=== PATIENT | female | born 1965 | race Caucasian/White ===

== ENCOUNTER → 2018-06-22 06:35 | Outpatient (CLI) | payer OTHER, SELFPAY ==
--- NOTE | 2018-06-22 06:48 | MRI_ITS ---
STUDY: MRI LEFT MIDFOOT REASON FOR EXAM: Left lateral foot pain since December with fifth metatarsal fracture. TECHNIQUE: Standardized fat and water weighted pulse sequences were obtained in all 3 orthogonal planes. COMPARISON: None. FINDINGS: Normal tibiotalar and posterior subtalar articulations. Normal talonavicular articulation. Normal calcaneocuboid articulation. Normal navicular-cuneiform articulations. Normal intercuneiform articulations. Normal first tarsometatarsal articulation. Normal Lisfranc ligament. Normal second and third tarsometatarsal articulations. Normal cuboid fourth and cuboid fifth tarsometatarsal articulation. There appears to be a small non retracted avulsion fracture of the fifth metatarsal base (T2 axial image 7) and with mild bone edema (inversion recovery sagittal image 19). Normal tibialis anterior tendon. Normal extensor hallucis longus tendon. Normal extensor digitorum longus tendons. Normal peroneus longus tendon and distal insertion. Normal peroneus brevis tendon and distal insertion. There is atrophy with partial fat replacement of the abductor digiti minimi muscle (T1 sagittal image 14). There is plantar fasciitis (inversion recovery sagittal images 8, 9). There is a plantar calcaneal enthesophyte. There is mild postoperative micrometallic artifact in the lateral subcutis adipose space. MRI/Lower Ext/No Jt/w/o IMPRESSION: Small avulsion fracture of the fifth metatarsal base with mild bone edema. Plantar fasciitis. Atrophy of the abductor digiti minimi muscle. Electronically Signed: Abraham López MD at 9:50 EDT Tel , Service support ,
== END ==
PROVIDERS: Family Provider Family Medicine; PCP Family Medicine; Referring Provider Podiatrist; Visit Provider Podiatrist
DX: S92.355D Nondisplaced fracture of fifth metatarsal bone, left foot, subsequent encounter for fracture with routine healing (principal); X58.XXXD Exposure to other specified factors, subsequent encounter; M79.672 Pain in left foot; M72.2 Plantar fascial fibromatosis; M77.32 Calcaneal spur, left foot
CPT/HCPCS: 73718

== ENCOUNTER 2018-09-29 14:13 | Observation (INO) | payer OTHER, SELFPAY ==
[2018-09-29] VITALS (17 sets, daily range): BP systolic 119–183; BP diastolic 70–102; PULSE 77–97; RESP 12–21; TEMP 36.6–36.7; O2SAT 97–100; BMI 40.3; BMI 46.4
--- NOTE | 2018-09-29 14:21 | EKG12_ITS ---
Test Reason : CP Blood Pressure : / mmHG Vent. Rate : 078 BPM Atrial Rate : 078 BPM P-R Int : 154 ms QRS Dur : 086 ms QT Int : 402 ms P-R-T Axes : 042 -15 002 degrees QTc Int : 458 ms Sinus rhythm with occasional Premature ventricular complexes Moderate voltage criteria for LVH, may be normal variant Borderline ECG When compared with ECG of 29-SEP-2018 17:14, MANUAL COMPARISON REQUIRED, DATA IS UNCONFIRMED Confirmed by UNIQUE CAVANAUGH, AUBREE ([id number]), editor magazine ZEENTA AYALA ([id number]) on 10/05/2018 10:24:29 AM Referred By: ALEXANDRE Confirmed By:AUBREE CALHOUN MD
--- NOTE | 2018-09-29 14:21 | RAD_ITS ---
STUDY: X-RAY CHEST REASON FOR EXAM: Female, 52 years old. Chest pain. TECHNIQUE: Single AP portable view of the chest. COMPARISON: None. FINDINGS: The lungs are clear and expanded. There is no demonstrated pleural abnormality. Normal size heart. Normal mediastinum and jena. Normal visualized pulmonary arteries. Normal visualized aortic arch and descending thoracic aorta. Normal visualized thoracic spine. Normal visualized ribs, clavicles, and shoulders. There is no demonstrated abnormality of the visualized soft tissue structures of the upper abdomen. RAD/Chest 1 View (Portable) IMPRESSION: Normal x-ray examination of the chest. Electronically Signed: Rick Owusu MD at 14:47 EST Tel [phone], Service support ,
[2018-09-29 14:34] LABS: Absolute Lymphocyte Count 2.97 X10^3/ul (0.83-4.51); Absolute Neutrophil Count 2.6 X10^3/uL (2.0-7.7); Basophil# 0.01 X10^3/uL; Basophil% 0.2 % (0-1); Eosinophil# 0.21 X10^3/uL; Eosinophils% 3.4 % (0-5); Hematocrit 42.4 % (37-47); Hemoglobin 14.1 g/dl (12.0-15.0); Lymphocyte # 2.97 X10^3/ul (4.0); Lymphocyte % 48.6 % (19-41); Mean Corp Hgb Conc 33.3 g/gl (32-36); Mean Corpuscular Hgb 29.7 pg (27.0-32.0); Mean Corpuscular Volume 89.5 fL (81-99); Mean Platelet Vol. 8.6 fl (6.2-12.0); Monocyte# 0.31 X10^3/uL; Monocyte% 5.1 % (0-10); Neutrophil % 42.5 % (47-70); POSITIVE COUNT NO; POSITIVE DIFFERENTIAL NO; POSITIVE MORPHOLOGY NO; Platelet Count 247 K/mm3 (150-450); RBC Distribution Width CV 12.6 % (11.6-14.6); RBC Distribution Width SD 40.6 fl (35.1-43.9); Red Blood Count 4.74 M/mm3 (4.2-5.4); White Blood Count 6.1 K/mm3 (4.4-11.0)
[2018-09-29 14:50] LABS: Anion Gap 7 (5-15); BUN 12 mg/dL (7-18); Calcium,Total 8.7 mg/dL (8.5-10.1); Chloride 108 mmol/L (98-107); EST Glomerular Filtration Rate 93 mL/min (>60); Est Glom Filt Rate - Afr Amer 112 mL/min (>60); Glucose 110 mg/dL (74-106); Potassium 3.5 mmol/L (3.5-5.1); Sodium Level 142 mmol/L (136-145)
--- NOTE | 2018-09-29 16:07 | ED.DCSUM_ITS ---
- ER Visit Summary Date of Service: 09/29/18 Chief Complaint: Chest pain History of Present Illness: The patient is a 52 F with chest pain that started about 7 hours ago she has intermittent episodes the last about 20 minutes. There is sharp achy with some radiation into the back but they are non-pleuritic . The pain is not tearing. She has a strong family history of cardiac events. Physical Examination: Not appear in acute distress. Moist mucous membranes, no obvious facial deformity No C-spine tenderness supple neck. Regular rate and rhythm without any obvious murmurs Clear lungs bilaterally speaking in full sentences without any obvious respiratory distress Abdomen soft and nontender no guarding or rebound Moves all extremities without any difficulty or pain. Skin does not show any obvious rashes or lesions, no trauma. Alert oriented ?3 with no gross focal deficit Emergency Department Course and Treatment: Patient has a negative troponin, she has nonspecific T wave flattening laterally, she has strong family history, a concerning history of present illness for cardiac events as well as a heart score of 4. I will call the hospitalist for admission for cardiac workup. I am not concerned about a PE or dissection. Disposition: Admit to the hospital in stable condition Impression: Chest pain This note was generated with [employer] dictation software. It may contain incorrect words, spelling, and punctuation that were not noted in review of the chart prior to signing ED Disposition - Plan for ED Patient: Chief Complaint: Chest Pain Referrals: Elizabeth Gibson MD [Primary Care Provider] -
--- NOTE | 2018-09-29 16:48 | PCM.HP.STD ---
Problem List (1) Chest pain Status: Acute Qualifiers: Chest pain type: unspecified Qualified Code(s): R07.9 - Chest pain, unspecified History of Present Illness Date of Admission: 09/29/18 Chief Complaint: chest pain The patient is a 52 year old F presents with chest pain. Began at 7AM, midsternal, radiated to back and down right arm. Resolved only to recur around noon. Never had prior.[] Past Medical History Allergies acetaminophen [From Darvocet-N] Allergy (Verified 09/29/18 14:27) Other benzoin Allergy (Verified 09/29/18 14:27) Rash naproxen [From Aleve] Allergy (Verified 09/29/18 14:27) Rash propoxyphene [From Darvocet-N] Allergy (Verified 09/29/18 14:27) Other tramadol [From Ultram] Allergy (Verified 09/29/18 14:27) Rash Home Medications: Ambulatory Orders Medication Instructions Recorded Aspirin E.C. [Ecotrin] 324 mg PO PRN PRN 09/29/18 Ibuprofen 400 mg PO PRN PRN 09/29/18 Ibuprofen/Famotidine [Duexis 1 tab PO Q6H PRN PRN 09/29/18 800-26.6 mg Tablet] Sumatriptan Succ/Naproxen Sod 1 tab PO DAILY PRN PRN 09/29/18 [Treximet 10-60 mg Tablet] Smoking Status: Never smoker Tobacco Use: Non-smoker Alcohol: None Drugs: None - *Family History Sibling History Items: Heart Disease Review of Systems Constitutional: Denies: Anorexia, Chills, Fever Eyes: Denies: Blurred vision, Double vision HEENT: Denies: Head Aches, Sinus Congestion, Sinus Drainage Cardiovascular: Reports: Chest Pain. Denies: Edema Respiratory: Reports: Shortness of Breath. Denies: Cough Gastrointestinal: Reports: Nausea. Denies: Abdominal Pain, Vomiting Genitourinary: Denies: Dysuria, Frequency Musculoskeletal: Denies: Joint Pain, Joint Tenderness Skin: Denies: Rash, Wounds Neurological: Denies: Numbness, Tingling, Focal weakness Psychiatric: Denies: Anxiety, Depression Hematologic/ Lymphatic: Denies: Easy Bruising, Easy Bleeding, Hx of blood clot Comment: A 10 point review of systems were negative except as mentioned in the history of present illness and the other review of systems. VTE Information - Inpt Only VTE Present on Admission: No VTE Mechan Device Prophylaxis: None VTE Pharm Prophylaxis ordered?: Yes Patient Problems: Active and Suspected Problems Chest pain (Acute) - Physical Exam General: Alert, Cooperative, No apparent distress HEENT: Atraumatic, Normocephalic Oral: Moist Mucosa, No Gingival or Mucosal Lesions/ Ulcerations Neck: No Nodes, Thyroid Normal Size and Texture Lungs: Clear to auscultation, Normal air movement, No rhonchi, No wheeze Cardiovascular: Regular rate, Regular Rhythm, Normal S1, Normal S2, No murmurs Abdomen: Bowel Sounds Present, Soft, Non Tender, Non-Distended, No Hepato-splenomegaly Extremities: No edema, No Calf Tenderness Skin: No rashes, No breakdown Musculoskeletal: No Tenderness to Palpation of Joints or Extremities, No Muscle Wasting Psych/Mental Status: Normal Affect, Appropriate Vital Signs Temp Pulse Resp BP Pulse Ox 36.7 C 92 21 H 170/102 H 99 09/29/18 14:13 09/29/18 16:20 09/29/18 16:20 09/29/18 16:20 09/29/18 16:20 Oxygen Delivery Method Room Air Weight: 106.594 kg Body Mass Index (BMI) 40.3 Laboratory Tests Past 24 Hrs 09/29/18 09/29/18 14:25 14:25 WBC 6.1 RBC 4.74 Hgb 14.1 Hct 42.4 MCV 89.5 MCH 29.7 MCHC 33.3 RDW 12.6 RDW Differential 40.6 Plt Count 247 MPV 8.6 Immature Gran % (Auto) 0.200 Neut % (Auto) 42.5 L Lymph % (Auto) 48.6 H [place] % (Auto) 5.1 Eos % (Auto) 3.4 Baso % (Auto) 0.2 Absolute Neuts (auto) 2.6 Absolute Lymphs (auto) 2.97 Total Counted Not Reportable Sodium 142 Potassium 3.5 Chloride 108 H Carbon Dioxide 27.0 Anion Gap 7 BUN 12 Creatinine 0.70 Estim Creat Clear Calc 82.10 Est GFR (MDRD) Af Amer 112 Est GFR (MDRD) Non-Af 93 BUN/Creatinine Ratio 17.0 Glucose 110 H Calcium 8.7 Troponin I < 0.015 Clinical Impression(s) from Imaging Studies Chest X-Ray 09/29/18 14:21 IMPRESSION: Normal x-ray examination of the chest. Electronically Signed: Rick Owusu MD at 14:47 EST Tel [phone], Service support , EKG reviewed and showed normal sinus rhythm with PVCs. Otherwise no acute changes. Assessment/Plan All Active Problems Chest pain (Acute) 1. Chest pain BURKE score of 2 Patient already on aspirin as outpatient Family history for coronary artery disease Patient recently broke her ankle so would not be able to engage in a treadmill stress test the patient will undergo a chemical nuclear stress test Cycle troponins 2. DVT prophylaxis with LMWH Code Visit OBSV E&M: [id number] Initial observation care L2
--- NOTE | 2018-09-29 16:53 | HP.PCM_ITS ---
Problem List (1) Chest pain Status: Acute Qualifiers: Chest pain type: unspecified Qualified Code(s): R07.9 - Chest pain, unspecified History of Present Illness Date of Admission: 09/29/18 Chief Complaint: chest pain The patient is a 52 year old F presents with chest pain. Began at 7AM, midsternal, radiated to back and down right arm. Resolved only to recur around noon. Never had prior.[] Past Medical History Allergies acetaminophen [From Darvocet-N] Allergy (Verified 09/29/18 14:27) Other benzoin Allergy (Verified 09/29/18 14:27) Rash naproxen [From Aleve] Allergy (Verified 09/29/18 14:27) Rash propoxyphene [From Darvocet-N] Allergy (Verified 09/29/18 14:27) Other tramadol [From Ultram] Allergy (Verified 09/29/18 14:27) Rash Home Medications: Ambulatory Orders Medication Instructions Recorded Aspirin E.C. [Ecotrin] 324 mg PO PRN PRN 09/29/18 Ibuprofen 400 mg PO PRN PRN 09/29/18 Ibuprofen/Famotidine [Duexis 1 tab PO Q6H PRN PRN 09/29/18 800-26.6 mg Tablet] Sumatriptan Succ/Naproxen Sod 1 tab PO DAILY PRN PRN 09/29/18 [Treximet 10-60 mg Tablet] Smoking Status: Never smoker Tobacco Use: Non-smoker Alcohol: None Drugs: None - *Family History Sibling History Items: Heart Disease Review of Systems Constitutional: Denies: Anorexia, Chills, Fever Eyes: Denies: Blurred vision, Double vision HEENT: Denies: Head Aches, Sinus Congestion, Sinus Drainage Cardiovascular: Reports: Chest Pain. Denies: Edema Respiratory: Reports: Shortness of Breath. Denies: Cough Gastrointestinal: Reports: Nausea. Denies: Abdominal Pain, Vomiting Genitourinary: Denies: Dysuria, Frequency Musculoskeletal: Denies: Joint Pain, Joint Tenderness Skin: Denies: Rash, Wounds Neurological: Denies: Numbness, Tingling, Focal weakness Psychiatric: Denies: Anxiety, Depression Hematologic/ Lymphatic: Denies: Easy Bruising, Easy Bleeding, Hx of blood clot Comment: A 10 point review of systems were negative except as mentioned in the history of present illness and the other review of systems. VTE Information - Inpt Only VTE Present on Admission: No VTE Mechan Device Prophylaxis: None VTE Pharm Prophylaxis ordered?: Yes Patient Problems: Active and Suspected Problems Chest pain (Acute) - Physical Exam General: Alert, Cooperative, No apparent distress HEENT: Atraumatic, Normocephalic Oral: Moist Mucosa, No Gingival or Mucosal Lesions/ Ulcerations Neck: No Nodes, Thyroid Normal Size and Texture Lungs: Clear to auscultation, Normal air movement, No rhonchi, No wheeze Cardiovascular: Regular rate, Regular Rhythm, Normal S1, Normal S2, No murmurs Abdomen: Bowel Sounds Present, Soft, Non Tender, Non-Distended, No Hepato- splenomegaly Extremities: No edema, No Calf Tenderness Skin: No rashes, No breakdown Musculoskeletal: No Tenderness to Palpation of Joints or Extremities, No Muscle Wasting Psych/Mental Status: Normal Affect, Appropriate Vital Signs Temp Pulse Resp BP Pulse Ox 36.7 C 92 21 H 170/102 H 99 09/29/18 14:13 09/29/18 16:20 09/29/18 16:20 09/29/18 16:20 09/29/18 16:20 Oxygen Delivery Method Room Air Weight: 106.594 kg Body Mass Index (BMI) 40.3 Laboratory Tests Past 24 Hrs 09/29/18 09/29/18 14:25 14:25 WBC 6.1 RBC 4.74 Hgb 14.1 Hct 42.4 MCV 89.5 MCH 29.7 MCHC 33.3 RDW 12.6 RDW Differential 40.6 Plt Count 247 MPV 8.6 Immature Gran % (Auto) 0.200 Neut % (Auto) 42.5 L Lymph % (Auto) 48.6 H [place] % (Auto) 5.1 Eos % (Auto) 3.4 Baso % (Auto) 0.2 Absolute Neuts (auto) 2.6 Absolute Lymphs (auto) 2.97 Total Counted Not Reportable Sodium 142 Potassium 3.5 Chloride 108 H Carbon Dioxide 27.0 Anion Gap 7 BUN 12 Creatinine 0.70 Estim Creat Clear Calc 82.10 Est GFR (MDRD) Af Amer 112 Est GFR (MDRD) Non-Af 93 BUN/Creatinine Ratio 17.0 Glucose 110 H Calcium 8.7 Troponin I < 0.015 Clinical Impression(s) from Imaging Studies Chest X-Ray 09/29/18 14:21 IMPRESSION: Normal x-ray examination of the chest. Electronically Signed: Rick Owusu MD at 14:47 EST Tel [phone], Service support , EKG reviewed and showed normal sinus rhythm with PVCs. Otherwise no acute changes. Assessment/Plan All Active Problems Chest pain (Acute) 1. Chest pain BURKE score of 2 Patient already on aspirin as outpatient Family history for coronary artery disease Patient recently broke her ankle so would not be able to engage in a treadmill stress test the patient will undergo a chemical nuclear stress test Cycle troponins 2. DVT prophylaxis with LMWH Code Visit OBSV E&M: 52322 Initial observation care L2
--- NOTE | 2018-09-29 17:00 | EKG12_ITS ---
Test Reason : CP Blood Pressure : / mmHG Vent. Rate : 096 BPM Atrial Rate : 096 BPM P-R Int : 158 ms QRS Dur : 090 ms QT Int : 374 ms P-R-T Axes : 046 -19 018 degrees QTc Int : 472 ms Sinus rhythm with sinus arrhythmia with frequent Premature ventricular complexes Moderate voltage criteria for LVH, may be normal variant Borderline ECG Confirmed by UNIQUE CAVANAUGH, AUBREE ([id number]), design editor ZEENAT AYALA ([id number]) on 10/05/2018 9:45:02 AM Referred By: YULISA Confirmed By:AUBREE CALHOUN MD
--- NOTE | 2018-09-29 21:36 | EKG12_ITS ---
Test Reason : CP ADMISSION Blood Pressure : / mmHG Vent. Rate : 077 BPM Atrial Rate : 070 BPM P-R Int : 162 ms QRS Dur : 090 ms QT Int : 390 ms P-R-T Axes : 049 -14 004 degrees QTc Int : 441 ms Sinus rhythm with sinus arrhythmia with occasional Premature ventricular complexes Moderate voltage criteria for LVH, may be normal variant Nonspecific T wave abnormality Abnormal ECG Confirmed by UNIQUE CAVANAUGH, AUBREE ([id number]), commissioning editor ZEENAT AYALA ([id number]) on 10/05/2018 10:27:07 AM Referred By: ALEXANDRE Confirmed By:AUBREE CALHOUN MD
[2018-09-30] VITALS (8 sets, daily range): BP systolic 119–161; BP diastolic 73–98; PULSE 77–93; RESP 18; TEMP 36.2–36.8; O2SAT 96–99
[2018-09-30] MEDS: Morphine 2 MG/ML Syringe 1 MG IV (02:26)
[2018-09-30] MEDS: 0.9% NaCl Peripheral Flush Adult/Peds IV (02:28)
[2018-09-30 05:38] LABS: Absolute Lymphocyte Count 2.32 X10^3/ul (0.83-4.51); Absolute Neutrophil Count 2.3 X10^3/uL (2.0-7.7); Basophil# 0.02 X10^3/uL; Basophil% 0.4 % (0-1); Eosinophil# 0.21 X10^3/uL; Eosinophils% 4.1 % (0-5); Hematocrit 41.2 % (37-47); Hemoglobin 13.6 g/dl (12.0-15.0); Lymphocyte # 2.32 X10^3/ul (4.0); Mean Corpuscular Hgb 29.4 pg (27.0-32.0); Mean Corpuscular Volume 89.2 fL (81-99); Monocyte# 0.34 X10^3/uL; Monocyte% 6.6 % (0-10); Neutrophil # 2.25 X10^3/uL (2.7-7.7); Neutrophil % 43.7 % (47-70); Platelet Count 233 K/mm3 (150-450); RBC Distribution Width CV 12.8 % (11.6-14.6); RBC Distribution Width SD 41.2 fl (35.1-43.9); Red Blood Count 4.62 M/mm3 (4.2-5.4); White Blood Count 5.2 K/mm3 (4.4-11.0)
[2018-09-30 05:41] LABS: POSITIVE COUNT NO; POSITIVE DIFFERENTIAL NO; POSITIVE MORPHOLOGY NO
[2018-09-30 05:50] LABS: International Normalized Ratio 1.1; Prothrombin Time (Protime)PT. 14.1 SECONDS (11.7-14.9)
[2018-09-30 05:51] LABS: Partial Thromboplast Time 32.6 Seconds (24.1-36.2)
[2018-09-30] MEDS: Aspirin 81 MG TAB.CHEW PO (05:55)
--- NOTE | 2018-09-30 05:55 | EKG12_ITS ---
Test Reason : CP Blood Pressure : / mmHG Vent. Rate : 080 BPM Atrial Rate : 080 BPM P-R Int : 154 ms QRS Dur : 088 ms QT Int : 412 ms P-R-T Axes : 056 -11 013 degrees QTc Int : 475 ms Normal sinus rhythm Normal ECG When compared with ECG of 29-SEP-2018 21:41, MANUAL COMPARISON REQUIRED, DATA IS UNCONFIRMED Confirmed by UNIQUE CAVANAUGH, AUBREE ([id number]), staff editor ZEENAT AYALA ([id number]) on 10/05/2018 10:25:04 AM Referred By: ALEXANDRE Confirmed By:AUBREE CALHOUN MD
[2018-09-30 06:31] LABS: Anion Gap 6 (5-15); BUN 9 mg/dL (7-18); BUN/Creat Ratio 15.3 RATIO (10-20); Calcium,Total 8.2 mg/dL (8.5-10.1); Chloride 111 mmol/L (98-107); Cholesterol 160 mg/dL (200); Creatinine, Serum 0.59 mg/dL (0.55-1.02); EST Glomerular Filtration Rate 115 mL/min (>60); Est Glom Filt Rate - Afr Amer 139 mL/min (>60); Estimated Creatinine Clearance 81.03 ml/min; Glucose 85 mg/dL (74-106); High Density Lipoprotein 54 mg/dL; Potassium 3.5 mmol/L (3.5-5.1); Sodium Level 142 mmol/L (136-145); Triglycerides 84 mg/dL; Very Low Density Lipoprotein 17 mg/dL (5-40)
--- NOTE | 2018-09-30 12:01 | DCINST_ITS ---
- Discharge Diagnoses Current Active Problems: Current Active and Chronic Problems 1. Noncardiac chest pain 2. Hypertension without previous diagnosis You will use the following diet at home:: No restrictions Discharge Activity: Return to Normal Activity Call your doctor if you observe: Shortness of breath, Dizziness, Fainting spells, Chest pain Allergies/Adverse Reactions: Allergies acetaminophen [From Darvocet-N] Allergy (Verified 09/29/18 14:27) Other benzoin Allergy (Verified 09/29/18 17:17) Shortness of breath eats away at my skin if it comes in contact naproxen [From Aleve] Allergy (Verified 09/29/18 17:17) Swelling propoxyphene [From Darvocet-N] Allergy (Verified 09/29/18 17:17) Other hallucination tramadol [From Ultram] Allergy (Verified 09/29/18 17:17) Hives Medications to take at Discharge Ibuprofen 400 mg PO PRN PRN 09/29/18 Ibuprofen/Famotidine [Duexis 800-26.6 mg Tablet] 1 tab PO Q6H PRN PRN 09/29/18 Sumatriptan Succ/Naproxen Sod [Treximet 10-60 mg Tablet] 1 tab PO DAILY PRN PRN 09/29/18 Aspirin [Aspirin, Baby] 81 mg PO DAILY@0800 #30 tab.chew 09/30/18 Lisinopril [Zestril] 5 mg PO DAILY #30 tablet 09/30/18 The following prescriptions were given: Aspirin [Aspirin, Baby] 81 mg PO DAILY@0800 #30 tab.chew Lisinopril [Zestril] 5 mg PO DAILY #30 tablet Primary Care Physician: Elizabeth Gibson MD [Primary Care Provider] - Please follow up with your Primary Care Physician in: 1 Week Test Results: Test results from this visit will be discussed in further detail at your follow- up appointment, if applicable. Proposed Discharge Date: 09/30/18
--- NOTE | 2018-09-30 13:46 | STRESSREP_ITS ---
Stress Test Report Pharmacologic myocardial perfusion stress test. 52-year-old lady with a history of atypical chest pain. Medications: Aspirin Lovenox. Next Stress protocol: Resting EKG demonstrates normal sinus rhythm with a rate of 83 bpm premature ventricular complex noted. Resting blood pressure 150/102 mmHg. 0.4 mg of regadenoson was infused per usual protocol followed by rapid intravenous saline flush injection continuous EKG monitoring was performed the patient maintained sinus rhythm with frequent premature ventricular complexes noted. The maximum heart rate attained was 114 bpm which was 67% of maximum predicted heart rate the maximum workload was 1 metabolic equivalent. At rest there were no ST or T wave changes noted suggest abnormal flow reserve at peak infusion no ST or T wave changes were noted suggest abnormal flow reserve. No clinical angina was noted. The resting blood pressure 150/102 with a final blood pressure 138/92 mmHg. Myocardial perfusion protocol. 14.4 mCi of technetium 99m sestamibi was injected at rest. 0.4 mg of regadenoson was infused per usual protocol peak infusion 44.9 mCi of technetium 99m sestamibi was injected stress images were obtained stress and rest images were reconstructed and compared in the short axis vertical long horizontal long axis. Gated images were also obtained Perfusion SPECT analysis: Review of the stress images demonstrate normal uptake of tracer noted in all areas of myocardium. The resting images similarly demonstrate normal uptake of tracer noted in all areas of myocardium. No areas of reversibility are noted suggest ischemia no previous infarct is noted. Gated SPECT analysis: The gated ejection fraction is noted to be 45%. The above is suggestive of a mi ld cardiomyopathy. Conclusion: Normal pharmacologic myocardial perfusion stress test. Mildly reduced left ventricular systolic function.
--- NOTE | 2018-09-30 14:00 | PCM.DC.SUM ---
<Marilee Das - Last Filed: 09/30/18 14:03> Discharge Date and Diagnosis Date of Admission: 09/29/18 Date of Discharge: 09/30/18 - Primary Discharge Diagnosis Active and Suspected Problems 1. Noncardiac chest pain, ACS rule out 2. Hypertension without previous diagnosis Hospital Course and Treatment Imaging Results: Diagnostic Data Chest X-Ray 09/29/18 14:21 IMPRESSION: Normal x-ray examination of the chest. Electronically Signed: Rick Owusu MD at 14:47 EST Tel [phone], Service support , Operations: None Procedures: Stress test Summary of Care Provided: The patient is a 52 year old F admitted 09/29/2018 due to chest pain. Troponin negative. EKG without ST-T changes. Patient underwent nuclear stress test which was negative for ischemia. Patient will continue daily baby aspirin which she was on prior to admission. She reports a family history of coronary artery disease. ACS ruled out. Patient's blood pressure labile during admission. New diagnosis hypertension. Discharged on lisinopril 5 mg daily with further monitoring as outpatient and adjustment as found appropriate. Lipid panel within normal limits. Follow-up with primary care physician in 1 week. General: Alert, Cooperative, No apparent distress HEENT: Atraumatic, Normocephalic Oral: Moist Mucosa, No Gingival or Mucosal Lesions/ Ulcerations Neck: No Nodes, Thyroid Normal Size and Texture Lungs: Clear to auscultation, Normal air movement Cardiovascular: Regular rate, Regular Rhythm, Normal S1, Normal S2, No murmurs Abdomen: Bowel Sounds Present, Soft, Non Tender, Non-Distended Extremities: No edema, No Calf Tenderness Skin: No rashes, No breakdown Musculoskeletal: No Tenderness to Palpation of Joints or Extremities, No Muscle Wasting Psych/Mental Status: Normal Affect, Appropriate Patient seen and examined prior to discharge. Physical assessment as noted above. Patient is stable for discharge with follow up recommendations as noted above. This patient was seen by COLLIN Chappell under the supervision of Dr. Koo. - Physical Exam Vital Signs Temp Pulse Resp BP Pulse Ox 98.1 F 86 18 134/84 H 97 09/30/18 09:57 09/30/18 11:33 09/30/18 09:57 09/30/18 09:57 09/30/18 09:57 Oxygen Delivery Method Room Air Weight: 237 lb 10.533 oz Body Mass Index (BMI) 46.4 Intake and Output for Last 24 Hours 09/28/18 09/29/18 09/30/18 23:59 23:59 23:59 Intake Total 300 / 300 180 / 180 Balance 300 / 300 180 / 180 Laboratory Tests Past 24 Hrs 09/29/18 09/29/18 09/29/18 14:25 14:25 17:55 WBC 6.1 RBC 4.74 Hgb 14.1 Hct 42.4 MCV 89.5 MCH 29.7 MCHC 33.3 RDW 12.6 RDW Differential 40.6 Plt Count 247 MPV 8.6 Immature Gran % (Auto) 0.200 Neut % (Auto) 42.5 L Lymph % (Auto) 48.6 H [place] % (Auto) 5.1 Eos % (Auto) 3.4 Baso % (Auto) 0.2 Absolute Neuts (auto) 2.6 Absolute Lymphs (auto) 2.97 Total Counted Not Reportable PT INR APTT Sodium 142 Potassium 3.5 Chloride 108 H Carbon Dioxide 27.0 Anion Gap 7 BUN 12 Creatinine 0.70 Estim Creat Clear Calc 82.10 Est GFR (MDRD) Af Amer 112 Est GFR (MDRD) Non-Af 93 BUN/Creatinine Ratio 17.0 Glucose 110 H Calcium 8.7 Troponin I < 0.015 < 0.015 Triglycerides Cholesterol LDL Cholesterol VLDL Cholesterol HDL Cholesterol 09/29/18 09/30/18 09/30/18 19:55 02:16 05:12 WBC 5.2 RBC 4.62 Hgb 13.6 Hct 41.2 MCV 89.2 MCH 29.4 MCHC 33.0 RDW 12.8 RDW Differential 41.2 Plt Count 233 MPV 9.0 Immature Gran % (Auto) 0.200 Neut % (Auto) 43.7 L Lymph % (Auto) 45.0 H [place] % (Auto) 6.6 Eos % (Auto) 4.1 Baso % (Auto) 0.4 Absolute Neuts (auto) 2.3 Absolute Lymphs (auto) 2.32 Total Counted Not Reportable PT INR APTT Sodium Potassium Chloride Carbon Dioxide Anion Gap BUN Creatinine Estim Creat Clear Calc Est GFR (MDRD) Af Amer Est GFR (MDRD) Non-Af BUN/Creatinine Ratio Glucose Calcium Troponin I < 0.015 < 0.015 Triglycerides Cholesterol LDL Cholesterol VLDL Cholesterol HDL Cholesterol 09/30/18 09/30/18 09/30/18 05:12 05:12 07:25 WBC RBC Hgb Hct MCV MCH MCHC RDW RDW Differential Plt Count MPV Immature Gran % (Auto) Neut % (Auto) Lymph % (Auto) [place] % (Auto) Eos % (Auto) Baso % (Auto) Absolute Neuts (auto) Absolute Lymphs (auto) Total Counted PT 14.1 INR 1.1 APTT 32.6 Sodium 142 Potassium 3.5 Chloride 111 H Carbon Dioxide 25.0 Anion Gap 6 BUN 9 Creatinine 0.59 Estim Creat Clear Calc 81.03 Est GFR (MDRD) Af Amer 139 Est GFR (MDRD) Non-Af 115 BUN/Creatinine Ratio 15.3 Glucose 85 Calcium 8.2 L Troponin I < 0.015 < 0.015 Triglycerides 84 Cholesterol 160 LDL Cholesterol 89 VLDL Cholesterol 17 HDL Cholesterol 54 Discharge Diet: No Restrictions Discharge Activity: Return to Normal Activity Call your doctor if you observe: Shortness of breath, Dizziness, Fainting spells, Chest pain Home Medications: Medications to take at Discharge Ibuprofen 400 mg PO PRN PRN 09/29/18 Ibuprofen/Famotidine [Duexis 800-26.6 mg Tablet] 1 tab PO Q6H PRN PRN 09/29/18 Sumatriptan Succ/Naproxen Sod [Treximet 10-60 mg Tablet] 1 tab PO DAILY PRN PRN 09/29/18 Aspirin [Aspirin, Baby] 81 mg PO DAILY@0800 #30 tab.chew 09/30/18 Lisinopril [Zestril] 5 mg PO DAILY #30 tablet 09/30/18 Following Prescrptions Were Given to Patient: Aspirin [Aspirin, Baby] 81 mg PO DAILY@0800 #30 tab.chew Lisinopril [Zestril] 5 mg PO DAILY #30 tablet Primary Care Physician: Elizabeth Gibson MD [Primary Care Provider] - Please follow up with your Primary Care Physician in: 1 Week Disposition: Home Minutes spent on discharge:: 35 Patient Condition:: Stable Medical Necessity - Tobacco Use Smoking Status: Never smoker Tobacco Use: Non-smoker Meaningful Use Info Meaningful Use Diagnoses (Choose all that apply): None applicable <Lety Koo - Last Filed: 09/30/18 15:02> Hospital Course and Treatment Summary of Care Provided: The patient is a 52 year old F who was admitted with a complaint of chest pain. Troponins were negative and EKG showed no acute ST changes. Nuclear stress test was negative.She was on aspirin, which she is to continue. BP was elevated on admission with systolic ranging between 140s-180s, and dropping to 130s-140s. she was discharged with PO lisinopril 5mg daily. She is to we will up with her PCP for BP meds adjustment as needed. Patient seen and examined prior to discharge. She had no complaints and felt well. She denied any fever, chills, cough, chest pain, SOB, abdominal pain, diarrhea or vomiting. Review of systems is otherwise negative. Labs and vitals reviewed. Home meds reviewed and reconciled. o/e: Vital Signs Height 5 ft Weight: 237 lb 10.533 oz Weight in Pounds 237.7 lbs Pulse Ox 96 Temperature 98.2 F Pulse Rate 93 Respiratory Rate 18 Blood Pressure [BP] 143/79 Blood Pressure 119/97 Blood Pressure Position [BP] Semi-Fowlers Blood Pressure Position Sitting General: Alert, Cooperative, No apparent distress HEENT: Atraumatic, Normocephalic Oral: Moist Mucosa, No Gingival or Mucosal Lesions/ Ulcerations Neck: No Nodes, Thyroid Normal Size and Texture Lungs: Clear to auscultation, Normal air movement Cardiovascular: Regular rate, Regular Rhythm, Normal S1, Normal S2, No murmurs Abdomen: Bowel Sounds Present, Soft, Non Tender, Non-Distended Extremities: No edema, No Calf Tenderness Skin: No rashes, No breakdown Musculoskeletal: No Tenderness to Palpation of Joints or Extremities, No Muscle Wasting Psych/Mental Status: Normal Affect, Appropriate [] I have reviewed Marilee Das NP-C's note and agree with it. - Physical Exam Vital Signs Temp Pulse Resp BP Pulse Ox 98.2 F 93 18 119/97 H 96 09/30/18 14:31 09/30/18 14:31 09/30/18 14:31 09/30/18 14:31 09/30/18 14:31 Oxygen Delivery Method Room Air Weight: 237 lb 10.533 oz Body Mass Index (BMI) 46.4 Intake and Output for Last 24 Hours 09/28/18 09/29/18 09/30/18 23:59 23:59 23:59 Intake Total 300 / 300 180 / 180 Balance 300 / 300 180 / 180 Laboratory Tests Past 24 Hrs 09/29/18 09/29/18 09/30/18 17:55 19:55 02:16 WBC RBC Hgb Hct MCV MCH MCHC RDW RDW Differential Plt Count MPV Immature Gran % (Auto) Neut % (Auto) Lymph % (Auto) [place] % (Auto) Eos % (Auto) Baso % (Auto) Absolute Neuts (auto) Absolute Lymphs (auto) Total Counted PT INR APTT Sodium Potassium Chloride Carbon Dioxide Anion Gap BUN Creatinine Estim Creat Clear Calc Est GFR (MDRD) Af Amer Est GFR (MDRD) Non-Af BUN/Creatinine Ratio Glucose Calcium Troponin I < 0.015 < 0.015 < 0.015 Triglycerides Cholesterol LDL Cholesterol VLDL Cholesterol HDL Cholesterol 09/30/18 09/30/18 09/30/18 05:12 05:12 05:12 WBC 5.2 RBC 4.62 Hgb 13.6 Hct 41.2 MCV 89.2 MCH 29.4 MCHC 33.0 RDW 12.8 RDW Differential 41.2 Plt Count 233 MPV 9.0 Immature Gran % (Auto) 0.200 Neut % (Auto) 43.7 L Lymph % (Auto) 45.0 H [place] % (Auto) 6.6 Eos % (Auto) 4.1 Baso % (Auto) 0.4 Absolute Neuts (auto) 2.3 Absolute Lymphs (auto) 2.32 Total Counted Not Reportable PT 14.1 INR 1.1 APTT 32.6 Sodium 142 Potassium 3.5 Chloride 111 H Carbon Dioxide 25.0 Anion Gap 6 BUN 9 Creatinine 0.59 Estim Creat Clear Calc 81.03 Est GFR (MDRD) Af Amer 139 Est GFR (MDRD) Non-Af 115 BUN/Creatinine Ratio 15.3 Glucose 85 Calcium 8.2 L Troponin I < 0.015 Triglycerides 84 Cholesterol 160 LDL Cholesterol 89 VLDL Cholesterol 17 HDL Cholesterol 54 09/30/18 07:25 WBC RBC Hgb Hct MCV MCH MCHC RDW RDW Differential Plt Count MPV Immature Gran % (Auto) Neut % (Auto) Lymph % (Auto) [place] % (Auto) Eos % (Auto) Baso % (Auto) Absolute Neuts (auto) Absolute Lymphs (auto) Total Counted PT INR APTT Sodium Potassium Chloride Carbon Dioxide Anion Gap BUN Creatinine Estim Creat Clear Calc Est GFR (MDRD) Af Amer Est GFR (MDRD) Non-Af BUN/Creatinine Ratio Glucose Calcium Troponin I < 0.015 Triglycerides Cholesterol LDL Cholesterol VLDL Cholesterol HDL Cholesterol Discharge Diet: Low fat/ Low Cholesterol Code Visit Inpatient E&M: [id number] Disch Hosp
== END 2018-09-30 12:00 | disposition home or self-care (01) ==
LOC: ED 14:41 → PCU 16:30
PROVIDERS: Hospitalist; Emergency Provider Emergency Medicine; Family Provider Family Medicine; PCP Family Medicine; Visit Provider Student in an Organized Health Care Education/Training Program
DX: R07.89 Other chest pain (principal); Z79.899 Other long term (current) drug therapy; Z79.82 Long term (current) use of aspirin; R06.02 Shortness of breath; Z82.49 Family history of ischemic heart disease and other diseases of the circulatory system; I10 Essential (primary) hypertension
CPT/HCPCS: 36415; 71045; 78452; 80048; 80061; 84484; 85025; 85610; 85730; 93005; 93017; 96374; 99218; 99283; A9500; A4216; G0378; J2785

== ENCOUNTER → 2021-02-28 07:15 | Outpatient (CLI) | payer OTHER, SELFPAY ==
[2021-02-20 16:39] VITALS: BMI 46.4
--- NOTE | 2021-02-28 07:19 | BI_ITS ---
MAMMOGRAPHY - BILATERAL SCREENING REASON FOR EXAM: Female, 55 years old. Routine annual screening examination. PERTINENT HISTORY: Grandmother with breast cancer. TECHNIQUE: Digital bilateral breast jhoan (3D mammographic acquisition) in the CC and MLO projections. 2-D mediolateral oblique (MLO) and craniocaudad (CC) views of both breasts were obtained. CAD: Full Field Digital Mammography with Computer Added Detection was performed. COMPARISON: Comparison is made with prior outside examination dated 10/25/2013. FINDINGS: Breast Composition: The breasts are almost entirely fatty. There are no dominant masses or suspicious calcifications. Small benign-appearing bilateral axillary lymph nodes. No other significant abnormalities are identified. There has been no significant change since the prior study. BI/SCRN MAMM (CAD)W/JHOAN BILAT IMPRESSION: Stable bilateral screening mammogram. Yearly follow-up mammogram recommended. (A) ASSESSMENT CATEGORY: BIRADS Category 2: Benign. A letter regarding these results will be sent to the patient by the facility within 30 days. Approximately 10% of breast cancers are not detected by mammography. A normal mammogram should not delay biopsy of a clinically suspicious abnormality. [id number] Electronically Signed: Rick Owusu MD at 8:53 EDT , Service support ,
== END ==
PROVIDERS: PCP Family Medicine; Referring Provider Family Medicine; Visit Provider Family Medicine
DX: Z12.31 Encounter for screening mammogram for malignant neoplasm of breast (principal)
CPT/HCPCS: 77063; 77067

== ENCOUNTER → 2022-12-26 | Outpatient (CLI) | payer OTHER, SELFPAY ==
--- NOTE | 2022-12-26 07:41 | BI_ITS ---
MAMMOGRAPHY - BILATERAL SCREENING REASON FOR EXAM: Female, 57 years old. Routine annual screening examination. PERTINENT HISTORY: Sister with breast cancer. Grandmother with breast cancer. TECHNIQUE: Digital bilateral breast jhoan (3D mammographic acquisition) in the CC and MLO projections. 2-D mediolateral oblique (MLO) and craniocaudad (CC) views of both breasts were obtained. CAD: Full Field Digital Mammography with Computer Added Detection was performed. COMPARISON: Comparison is made with prior study dated February 28, 2021. FINDINGS: Breast Composition: The breasts are almost entirely fatty. There are no dominant masses or suspicious calcifications. No other significant abnormalities are identified. There has been no significant change since the prior study. BI/SCRN MAMM (CAD)W/JHOAN BILAT IMPRESSION: Stable bilateral screening mammogram. Yearly follow-up mammogram recommended. (A) ASSESSMENT CATEGORY: BIRADS Category 1: Negative. A letter regarding these results will be sent to the patient by the facility within 30 days. Approximately 10% of breast cancers are not detected by mammography. A normal mammogram should not delay biopsy of a clinically suspicious abnormality. [id number] Electronically Signed: Rick Owusu MD at 9:06 EDT ,
== END | disposition home or self-care (01) ==
LOC: OPBI 07:39
PROVIDERS: PCP Family Medicine; Visit Provider Family Medicine
DX: Z12.31 Encounter for screening mammogram for malignant neoplasm of breast (principal); Z80.3 Family history of malignant neoplasm of breast
CPT/HCPCS: 77063; 77067

== ENCOUNTER 2024-01-01 15:25 | Emergency (ER) | payer OTHER, SELFPAY ==
[2024-01-01] VITALS (8 sets, daily range): BP systolic 140–179; BP diastolic 81–122; PULSE 64–72; RESP 16–22; TEMP 35.8–36.8; O2SAT 96–100
--- NOTE | 2024-01-01 15:32 | EKG12_ITS ---
Test Reason : CP Blood Pressure : / mmHG Vent. Rate : 065 BPM Atrial Rate : 065 BPM P-R Int : 164 ms QRS Dur : 084 ms QT Int : 410 ms P-R-T Axes : 057 -17 -05 degrees QTc Int : 426 ms Normal sinus rhythm Minimal voltage criteria for LVH, may be normal variant ( R in aVL ) Borderline ECG Confirmed by Rodríguez Scott ([id number]), assistant editor FLAVIA JOHNSTON ([id number]) on 01/02/2024 11:05:20 AM Referred By: LUIS Confirmed By:Rodríguez Scott
--- NOTE | 2024-01-01 15:50 | RAD_ITS ---
EXAM: XR CHEST, 1 VIEW CLINICAL INDICATION: chest pain TECHNIQUE: Frontal view of the chest. COMPARISON: No relevant prior studies available. FINDINGS: LUNGS AND PLEURAL SPACES: Unremarkable. No consolidation or edema. No pneumothorax. No effusion. HEART: Unremarkable. Cardiac silhouette not enlarged. MEDIASTINUM: Central airways and mediastinal contour are unremarkable. BONES/JOINTS: Unremarkable. No acute fracture. SOFT TISSUES: Unremarkable. RAD/Chest 1 View (Portable) IMPRESSION: No radiographic evidence of acute cardiopulmonary disease. Electronically Signed: Junior Dorman MD at 16:17 EDT ,
[2024-01-01 15:52] LABS: Absolute Lymphocyte Count 2.66 X10^3/uL (0.83-4.51); Absolute Neutrophil Count 3.1 X10^3/uL (2.0-7.7); Basophil# 0.04 X10^3/uL; Basophil% 0.6 % (0-1); Eosinophil# 0.39 X10^3/uL; Eosinophils% 5.7 % (0-5); Hematocrit 42.1 % (37-47); Hemoglobin 13.7 g/dL (12.0-15.0); Lymphocyte # 2.66 X10^3/ul (0.83-4.51); Lymphocyte % 38.8 % (19-41); Mean Corp Hgb Conc 32.5 g/dL (32-36); Mean Corpuscular Hgb 28.7 pg (27.0-32.0); Mean Corpuscular Volume 88.3 fL (81-99); Mean Platelet Vol. 8.3 fl (6.2-12.0); Monocyte# 0.58 X10^3/uL; Monocyte% 8.5 % (0-10); NRBC Flagged by Analyzer 0 % (0-5); Neutrophil # 3.14 X10^3/uL (2.7-7.7); Neutrophil % 45.8 % (47-70); Platelet Count 266 K/mm3 (150-450); RBC Distribution Width CV 12.5 % (11.6-14.6); RBC Distribution Width SD 40.2 fl (35.1-43.9); Red Blood Count 4.77 M/mm3 (4.2-5.4); White Blood Count 6.9 K/mm3 (4.4-11.0)
[2024-01-01 16:11] LABS: Anion Gap 2 (5-15); BUN 19 mg/dL (7-18); BUN/Creat Ratio 23.1 RATIO (10-20); Calcium,Total 9.3 mg/dL (8.5-10.1); Chloride 108 mmol/L (98-107); Creatinine, Serum 0.82 mg/dL (0.55-1.02); EST Glomerular Filtration Rate 76 mL/min (>60); Est Glom Filt Rate - Afr Amer 92 mL/min (>60); Glucose 92 mg/dL (74-106); Potassium 3.7 mmol/L (3.5-5.1); Sodium Level 139 mmol/L (136-145); Troponin-I HS (w/2H Reflex) 5 pg/mL (3.0-54.0)
--- NOTE | 2024-01-01 17:38 | EDS_ITS ---
HPI History of Present Illness Chief Complaint: Chest Pain Informant: patient Onset/Context/Timing Onset: Today and Hours (4) Activity at onset: sudden Timing: Intermittent Quality: Positive for Sharp and Stabbing Location: Substernal Worsened By: Nothing Relieved By: Nothing Associated Symptoms: Positive for Lightheadedness; Negative for Nausea, Vomiting, Diaphoresis, Dyspnea, Cough, Fever, Acid Reflux or Palpitations Narrative Narrative: Patient presents with chest pain that began today. Patient states she was sitting when her pain began. Patient states that has been intermittent. Patient states it is over the substernal area and radiates into her back. Patient states nothing makes it better and nothing makes it worse. Patient admits to some lightheadedness. Patient denies any nausea or vomiting. Patient denies any shortness of breath or cough. Patient denies any palpitations. Patient denies any fevers or chills. CVD Risk Factors: Positive for Hypertension and Family History 1' </=55; Negative for Diabetes, Hypercholesterolemia or Smoking PE Risk Factors: Positive for Recent Travel/Surgery (Patient admits to recent travel approximately 2 weeks ago to [place].); Negative for Recent Immobilization, Prior DVT or PE, Cancer or OCP + Smoking + >/=35 PFSH PFSH Medical History (Updated 01/01/24 @ 19:[address] Edson Gonzales, ) Depression Hypertension Home Medications ibuprofen 200 mg tablet 400 mg PO PRN PRN Pain 09/29/18 [History Last Taken 09/28/18] ibuprofen 800 mg-famotidine 26.6 mg tablet (Duexis) 1 tab PO Q6H PRN PRN Pain 09/29/18 [History Last Taken 09/26/18] sumatriptan 10 mg-naproxen 60 mg tablet (Treximet) 1 tab PO DAILY PRN PRN Headache 09/29/18 [History Last Taken 09/12/18] aspirin 81 mg chewable tablet 81 mg PO DAILY@0800 ##30 09/30/18 [Rx Last Taken Unknown] lisinopril 5 mg tablet 5 mg PO DAILY ##30 09/30/18 [Rx Last Taken Unknown] Allergy/AdvReac Type Severity Reaction Status Date / Time acetaminophen Allergy Other Verified 01/01/24 15:26 [From Darvocet-N] benzoin Allergy Shortness Verified 01/01/24 15:26 of breath naproxen [From Aleve] Allergy Swelling Verified 01/01/24 15:26 propoxyphene Allergy Other Verified 01/01/24 15:26 [From Darvocet-N] tramadol [From Ultram] Allergy Hives Verified 01/01/24 15:26 Surgical History (Updated 01/01/24 @ 17:[address] Edson Gonzales DO) History of hysterectomy Hx of appendectomy Hx of section Hx of cholecystectomy Hx of foot surgery Social History Smoking Status: Never smoker ROS ROS ED Constitutional Constitutional ED: Denies chills or fever(s) Eyes Eyes: Denies blurry vision or change in vision ENT ENT ED: Denies rhinorrhea or sore throat Cardiovascular Cardiovascular: Reports chest pain; Denies palpitations Respiratory/Chest Respiratory/Chest: Denies cough or dyspnea Gastrointestinal Gastrointestinal: Denies nausea or vomiting Genitourinary Genitourinary ED: Denies dysuria or hematuria Musculoskeletal Musculoskeletal: Reports back pain; Denies neck pain Integumentary Denies abscess or rash Neurologic Neurologic: Denies headache(s) or weakness Allergic/Immunologic Allergic/Immunologic ED: Denies mouth swelling or urticaria EXAM Physical Exam Const Vital Signs: 01/01/24 15:29 01/01/24 17:13 01/01/24 17:14 Temperature 96.5 F L Temperature Source Temporal Pulse Rate 68 71 Respiratory Rate 18 16 Respiratory Effort Blood Pressure 176/87 H 179/99 H Blood Pressure Mean 116 125 Pulse Ox 98 98 100 Oxygen Delivery Method Room Air Room Air Room Air 01/01/24 17:15 01/01/24 17:31 01/01/24 17:48 Temperature Temperature Source Pulse Rate 72 67 Respiratory Rate 17 17 Respiratory Effort Normal Non-Labored Blood Pressure 156/94 H 166/94 H Blood Pressure Mean 114 118 Pulse Ox 99 99 Oxygen Delivery Method Room Air Room Air 01/01/24 19:00 Temperature Temperature Source Pulse Rate 64 Respiratory Rate 16 Respiratory Effort Blood Pressure 156/81 H Blood Pressure Mean 106 Pulse Ox 96 Oxygen Delivery Method Room Air Positive well nourished, well developed and obese General Appearance ED: well developed and NAD Nutritional Appearance: obese HEENT Reports moist mucous membranes Neck supple and no JVD Resp normal respiratory effort and clear to auscultation bilaterally Cardio regular rate and regular rhythm GI soft to palpation, non-tender and non-distended Neuro oriented x3, CN's II-XII intact bilaterally and no sensory deficits noted Sensorium / Orientation: awake and alert Motor Exam: strength 5/5 throughout Psych mental status grossly normal Heart Score History: Slightly/Non-Suspicious ECG: Normal Age: >45 - <65 years Risk Factors: 1 or 2 Risk Factors Troponin: </= Normal Limit Score: 2 MDM MDM MDM Narrative Medical decision making narrative: Differential diagnosis includes cardiac dysrhythmia, cardiac ischemia, electrolyte abnormality, pneumonia, and musculoskeletal pain. EKG will be obtained to assess for cardiac dysrhythmia and cardiac ischemia. Chest x-ray will be obtained to assess for pneumonia or pneumothorax. CBC will be obtained to assess for leukocytosis and anemia. Basic metabolic profile will be obtained to assess for electrolyte abnormality and renal function. High-sensitivity troponin will be obtained to assess for cardiac ischemia. 2-hour repeat high- sensitivity troponin will be obtained to assess for ongoing cardiac ischemia. Lab Data Attestation: I reviewed the patient's lab results. Lab results narrative: CBC was reviewed and was within normal limits. Basic metabolic profile was reviewed and was essentially within normal limits. High-sensitivity troponin was reviewed and was normal at 5. 2-hour repeat high-sensitivity troponin was reviewed and was normal at 7. Labs: Laboratory Results - last 24 hr 01/01/24 01/01/24 15:45 18:55 WBC 6.9 RBC 4.77 Hgb 13.7 Hct 42.1 MCV 88.3 MCH 28.7 MCHC 32.5 RDW Std Deviation 40.2 RDW Coeff of [place]y 12.5 Plt Count 266 MPV 8.3 Immature Gran % (Auto) 0.600 Neut % (Auto) 45.8 L Lymph % (Auto) 38.8 [place] % (Auto) 8.5 Eos % (Auto) 5.7 H Baso % (Auto) 0.6 Absolute Neuts (auto) 3.1 Absolute Lymphs (auto) 2.66 Nucleated RBC % 0 Sodium 139 Potassium 3.7 Chloride 108 H Carbon Dioxide 29.0 Anion Gap 2 L BUN 19 H Creatinine 0.82 Est GFR (MDRD) Af Amer 92 Est GFR (MDRD) Non-Af 76 BUN/Creatinine Ratio 23.1 H Glucose 92 Calcium 9.3 Troponin I High Sens 5 7 Radiography Chest X-Ray - ED: 1 View, Read by ED Physician, Read by Radiologist and No Acute Disease Diagnostic Testing: Clinical Impression(s) from Imaging Studies Chest X-Ray 01/01/24 15:50 IMPRESSION: No radiographic evidence of acute cardiopulmonary disease. Electronically Signed: Junior Dorman MD at 16:17 EDT , Portable 1 view chest x-ray was obtained. On my independent interpretation, lung peck are clear. There is normal cardiac silhouette. Bony thorax is normal. There is no acute process noted. Radiologist also interpreted the x- ray and agrees. EKG Initial EKG: Attestation: I personally reviewed and interpreted this EKG as follows: Interpretation: Sinus Rhythm (65) and No Acute Injury Pattern Comments: EKG was obtained. On my independent interpretation, it showed a normal sinus rhythm with a rate of 65. WA interval, QRS interval, and QTc intervals were all normal. [place] was normal. There are no acute ST or T wave changes. Prior EKG tracings: available for review Prior: Unchanged (09/30/2018) Treatment and Re-Evaluation :: Patient was given aspirin here. Patient was advised of her findings. Patient is feeling better on reevaluation. Patient has a HEART score of 2. Patient was advised that this is low risk for acute cardiac event. Patient was instructed to follow-up with her primary care physician in 5 to 7 days for further evaluation. Patient understood and was agreeable with the plan. All questions were answered. Discharge Plan Triage Chief Complaint: Chest Pain ED Provider: Edson Gonzales Dx/Rx/DC Orders Clinical Impression: Chest pain, Hypertension Instructions: ED Chest Pain, Uncertain Cause Prescriptions: No Action ibuprofen-famotidine [Duexis] 1 EACH tablet 1 tab PO Q6H PRN PRN (Reason: Pain) sumatriptan-naproxen [Treximet] 1 EACH tablet 1 tab PO DAILY PRN PRN (Reason: Headache) ibuprofen 200 MG tablet 400 mg PO PRN PRN (Reason: Pain) aspirin 81 MG tablet,chewable 81 mg PO DAILY@0800 Qty: 30 0RF lisinopril 5 MG tablet 5 mg PO DAILY Qty: 30 0RF Primary Care Provider: Elizabeth Stewart Referrals: Elizabeth Stewart DO [Primary Care Provider] - 5-7 Days Disposition Disposition: Home, Self Care
[2024-01-01 17:50] LABS: Reflex Troponin-HS? (from REC) Y
[2024-01-01] MEDS: Aspirin 81 MG TAB.CHEW 324 MG PO (17:54)
[2024-01-01 19:28] LABS: Troponin-I HS 7 pg/mL (3.0-54.0)
== END 2024-01-01 20:07 | disposition home or self-care (01) ==
PROVIDERS: Emergency Provider Emergency Medicine; PCP Family Medicine; Visit Provider Emergency Medicine
DX: R07.9 Chest pain, unspecified (principal); I10 Essential (primary) hypertension; Z79.82 Long term (current) use of aspirin; Z79.899 Other long term (current) drug therapy
CPT/HCPCS: 71045; 80048; 84484; 85025; 93005; 99284; A4216

== ENCOUNTER → 2024-03-12 | Outpatient (CLI) | payer OTHER, SELFPAY ==
--- NOTE | 2024-03-12 13:22 | CT_ITS ---
STUDY: CT CHEST WITH CONTRAST REASON FOR EXAM: Female, 58 years old. CP limited over read ONLY RADIATION DOSAGE (If Supplied By Facility): CTDIvol = ( 66.42 ) mGy, DLP = ( 2152.08 ) mGycm TECHNIQUE: Transaxial imaging was performed following intravenous administration of IV 75mL Isovue-370. Individualized dose optimization techniques were used for this CT. COMPARISON: No relevant priors. FINDINGS: CHEST Minimal atelectasis at the lung bases. There is no demonstrated pleural abnormality. Normal heart and pericardium. No coronary artery calcification is seen. Normal mediastinum. Normal hilar regions. Normal unenhanced pulmonary arteries. There is mild atherosclerotic calcification of the aortic arch. Normal osseous structures. Diffuse fatty infiltration of the liver. CT/Limited Chest CT Cardiac Only IMPRESSION: Minimal atelectasis at the lung bases. No coronary artery calcification is seen. Electronically Signed: Rick Owusu MD at 9:13 EDT ,
[2024-03-12 13:26] VITALS: BP 159/89; PULSE 61; RESP 18; TEMP 36.8; O2SAT 96; BMI 49.8
[2024-03-12] MEDS: 0.9% Saline Lock 10 ML Syringe IV (13:35)
[2024-03-12 13:46] VITALS: BP 130/84; PULSE 63
[2024-03-12] MEDS: Nitroglycerin SL (ED/IMG/CATH) 0.4 MG TABLET SL (13:46)
[2024-03-12 13:47] VITALS: BP 130/84; PULSE 62; RESP 18; O2SAT 95
[2024-03-12 13:53] LABS: CREATININE FINGERSTICK < 1.0 mg/dL (0.55-1.02); EGFR FINGERSTICK > 60.0000 mL/min (>60)
--- NOTE | 2024-03-15 07:15 | CCTA.WCONT ---
CCTA w/Cont Coronary Arteries Date of Study:: 03/12/24 Chest pain Coronary Calcium Scoring: High-resolution Computed Tomographic imaging of the chest was performed on [03/12/2024], with particular attention paid to the coronary arteries. Intravenous contrast agent was administered per protocol and images reconstructed and displayed. LEFT MAIN CORONARY ARTERY: This arose from the left coronary cusp and bifurcating to left anterior descending artery and left circumflex artery with no significant atherosclerotic plaquing [] LEFT ANTERIOR DESCENDING CORONARY ARTERY: Medium size vessel which coursed towards the apex of the ventricle with no significant atherosclerotic plaquing noted [] LEFT CIRCUMFLEX CORONARY ARTERY: No significant atherosclerotic plaquing noted in this vessel [] RIGHT CORONARY ARTERY: Arose from the right coronary cusp with no significant atherosclerotic plaquing present. Conclusion: Coronary CTA with no significant obstructive stenosis present.
== END | disposition home or self-care (01) ==
LOC: CT 12:47
PROVIDERS: PCP Family Medicine; Referring Provider Nurse Practitioner Family; Visit Provider Nurse Practitioner Family
DX: R07.9 Chest pain, unspecified (principal)
CPT/HCPCS: 75574; 76380; Q9967